=== PATIENT | male | born 1965 | race Caucasian/White ===

== ENCOUNTER 2019-02-16 12:10 | Emergency (ER) | payer OTHER ==
[~2019-02-16] VITALS: Ht 162.6 cm; Wt 67.6 kg
[2019-02-16 12:38] VITALS: Ht 162.6 cm; Wt 67.6 kg
[2019-02-16 15:32] VITALS: BP 118/74
== END 2019-02-16 15:32 | disposition home or self-care (01) ==
LOC: ED 12:10
DX: S20.211A Contusion of right front wall of thorax, initial encounter (principal); Y04.8XXA Assault by other bodily force, initial encounter; Y93.89 Activity, other specified; Y92.89 Other specified places as the place of occurrence of the external cause; Y99.8 Other external cause status